=== PATIENT | male | born 1985 | race Caucasian/White ===

== ENCOUNTER 2017-10-23 09:36 | Inpatient (IN) | payer BC, OTHER ==
[~2017-10-23] VITALS: Ht 172.7 cm; Wt 65.8 kg
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
[2017-10-23] MEDS ORDERED: THIAMINE HCL 200 MG/2 ML VIAL IM ONE (15:45)
[2017-10-23] MEDS ORDERED: DICYCLOMINE HCL 20 MG TABLET PO PRN (15:45)
[2017-10-23] MEDS ORDERED: DIAZEPAM 5 MG TABLET PO PRN (15:45)
[2017-10-23] MEDS ORDERED: DIAZEPAM 10 MG TABLET PO PRN ×2 (15:45)
[2017-10-23] MEDS ORDERED: ONDANSETRON 4 MG/2 ML VIAL IM PRN (15:45)
[2017-10-23] MEDS ORDERED: IBUPROFEN 600 MG TABLET PO PRN (15:45)
[2017-10-23] MEDS ORDERED: MAGNESIUM HYDROXIDE 30 ML LIQUID UDC PO PRN (15:45)
[2017-10-23] MEDS ORDERED: ACETAMINOPHEN 325 MG TABLET PO PRN (15:45)
[2017-10-23] MEDS ORDERED: MAG HYDROX/AL HYDROX/SIMETH 30 ML LIQUID UDC PO PRN (15:45)
[2017-10-23] MEDS ORDERED: KETOROLAC TROMETHAMINE 30 MG INJ IM PRN (15:45)
[2017-10-23] MEDS ORDERED: ONDANSETRON ODT 4 MG TAB.RAPDIS SL PRN (15:45)
[2017-10-23] MEDS ORDERED: LOPERAMIDE HCL 2 MG CAPSULE PO PRN ×2 (15:45)
[2017-10-23] MEDS ORDERED: MIRALAX 17 GM POWD.PACK PO PRN (15:45)
[2017-10-23] MEDS ORDERED: CLONIDINE HCL 0.1 MG TABLET PO PRN (15:45)
[2017-10-23] MEDS ORDERED: LORAZEPAM 2 MG/1 ML VIAL IM PRN (15:45)
[2017-10-23 16:21] LABS: BASOPHILS % (AUTO) 0.5 % (0.0-2.0); EOSINOPHILS # (AUTO) 0.2 K/uL (0.0-0.7); EOSINOPHILS % (AUTO) 2.5 % (0.0-7.0); HEMATOCRIT 46.7 % (36.7-47.1); HEMOGLOBIN 15.8 g/dL (12.5-16.3); MEAN CORPUSCULAR HEMOGLOBIN 31.1 uug (23.8-33.4); MEAN CORPUSCULAR HGB CONC 34 g/dL (32.5-36.3); MEAN CORPUSCULAR VOLUME 91.8 fL (73.0-96.2); MONOCYTES # (AUTO) 0.8 K/uL (2.0-10.0); MONOCYTES % (AUTO) 8.9 % (0.0-11.0); NEUTROPHILS # (AUTO) 4.5 K/uL (1.8-8.9); NEUTROPHILS % (AUTO) 53.1 % (38.5-71.5); PLATELET COUNT (AUTO) 281 K/uL (152-348); RED BLOOD CELL COUNT(AUTO) 5.09 MIL/uL (4.06-5.63); WHITE BLOOD COUNT (AUTO) 8.5 K/uL (3.6-10.2)
[2017-10-23 16:24] LABS: ETHANOL < 3 MG/DL (0-0)
[2017-10-23 16:25] LABS: *AMPHETAMINE, URINE NEGATIVE (NEGATIVE); *BARBITURATE, URINE NEGATIVE (NEGATIVE); *CANNABINOID, URINE NEGATIVE (NEGATIVE); *COCCAINE, URINE NEGATIVE (NEGATIVE); *OPIATE, URINE NEGATIVE (NEGATIVE); *PHENCYCLIDINE SCREEN,URINE NEGATIVE (NEGATIVE)
[2017-10-23] MEDS: DIAZEPAM 10 MG TABLET PO SCH ×2 (16:29→20:46)
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
[2017-10-23 16:41] LABS: ALANINE AMINOTRANSFERASE 12 U/L (16-63); ALKALINE PHOSPHATASE 101 U/L (50-136); ASPARTATE AMINOTRANSFERASE 7 U/L (15-37); BILIRUBIN,TOTAL 0.2 mg/dL (0.2-1.0); CARBON DIOXIDE 28 mmol/L (21-32); CHLORIDE 109 mmol/L (98-107); CREATININE 0.9 mg/dL (0.6-1.3); GLUCOSE 136 mg/dL (74-106); POTASSIUM 4.3 mmol/L (3.5-5.1); TOTAL PROTEIN, SERUM 6.6 g/dL (6.4-8.2); UREA NITROGEN, BLOOD 11 mg/dL (7-18)
[2017-10-23 17:00] VITALS: BP 116/68
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
--- NOTE | 2017-10-23 17:30 | NUR ---
PRN Tylenol reassessment PRN Tylenol effective. Pt reports pain level is reduced to 2/10.
[2017-10-23] MEDS ORDERED: DULO60CA45 PO (18:21)
--- NOTE | 2017-10-23 19:13 | NUR ---
END OF SHIFT Report provided to day shift nurse. Pt is in his room watching TV. He is a 32 yo male admitted to [facility] today for BZD dependence. Last CIWA was 8. He drank 800mL. Fall and seizure precautions in place. Bed is down with call light in reach. Addendum: 10/23/17 at 1914 by AILEEN ZHU RN Correction: Report provided to automobile body repairer nurse.
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
[2017-10-23 20:00] VITALS: BP 117/74
[2017-10-23] MEDS: GABAPENTIN 300 MG CAPSULE PO SCH (20:46)
[2017-10-24] VITALS: BP 119/80
[2017-10-24 04:00] VITALS: BP 115/63
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
[2017-10-24 08:00] VITALS: BP 123/77
[2017-10-24] MEDS ORDERED: TUBERCULIN,PURIF.PROT.DERIV. 5 TU/0.1 ML TEST ID ONE (09:00)
[2017-10-24] MEDS: GABAPENTIN 300 MG CAPSULE PO SCH ×2 (09:37→20:07)
[2017-10-24] MEDS: DIAZEPAM 10 MG TABLET PO SCH ×3 (09:37→20:07)
[2017-10-24] MEDS: MULTIVITAMINS,THERAPEUTIC TABLET PO SCH (09:37)
[2017-10-24] MEDS: THIAMINE HCL 100 MG TABLET PO SCH (09:38)
[2017-10-24] MEDS: FOLIC ACID 1 MG TABLET PO SCH (09:38)
[2017-10-24] MEDS ORDERED: DULOXETINE 60 MG CAPSULE.DR PO SCH (10:45)
[2017-10-24 12:00] VITALS: BP 128/68
[2017-10-24 16:30] VITALS: BP 127/69
--- NOTE | 2017-10-24 16:59 | NUR ---
Therapist prompted client about group times. Client stated he will start attending groups tomorrow as he wants to rest today.
--- NOTE | 2017-10-24 17:12 | NUR ---
One time Zoila Pt reports feeling anxious. He states, "I feel like I'm about to panic". Encouraged relaxation. CIWA score 10. Contacted MD. Orders received for one time Zoila.
[2017-10-24] MEDS ORDERED: DIAZEPAM 10 MG TABLET PO ONE (17:15)
--- NOTE | 2017-10-24 18:10 | NUR ---
One time Valium reassessment One time Valium effective. Pt reports feeling more relaxed. CIWA score 4.
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
[2017-10-24] MEDS ORDERED: DIAZEPAM 10 MG TABLET PO PRN ×2 (19:45)
[2017-10-24] MEDS ORDERED: DIAZEPAM 5 MG TABLET PO PRN (19:45)
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
[2017-10-24 20:00] VITALS: BP 131/82
[2017-10-24] MEDS: BACLOFEN 20 MG TABLET PO PRN (20:07)
--- NOTE | 2017-10-24 20:07 | NUR ---
PRN Baclofen Px complained of body aches of 7/10. Baclofen 20 mg/tab, 1 tab given PO as PRN med. Well continue to monitor.
[2017-10-25] VITALS: BP 112/71
[2017-10-25 04:00] VITALS: BP 110/69
--- NOTE | 2017-10-25 04:00 | NUR ---
CIWA deferred CIWA deferred at 0000 and 0400 due to the px is asleep, to assess if the px is awake per doctor's order. We'll continue to monitor.
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
[2017-10-25 08:00] VITALS: BP 136/72
[2017-10-25] MEDS: FOLIC ACID 1 MG TABLET PO SCH (08:31)
[2017-10-25] MEDS: DULOXETINE 30 MG CAPSULE.DR PO SCH (08:31)
[2017-10-25] MEDS: MULTIVITAMINS,THERAPEUTIC TABLET PO SCH (08:32)
[2017-10-25] MEDS: THIAMINE HCL 100 MG TABLET PO SCH (08:32)
[2017-10-25] MEDS: BACLOFEN 20 MG TABLET PO PRN (08:32)
[2017-10-25] MEDS: GABAPENTIN 300 MG CAPSULE PO SCH (08:32)
--- NOTE | 2017-10-25 08:33 | NUR ---
PRN Baclofen Pt reports generalized body aches 05/21. PRN Baclofen administered.
[2017-10-25] MEDS ORDERED: DIAZEPAM 5 MG TABLET PO SCH (09:00)
--- NOTE | 2017-10-25 09:33 | NUR ---
PRN Baclofen reassessment PRN Baclofen effective. Pt reports body aches are relieved.
[2017-10-25 11:48] LABS: HEPATITIS B SURFACE AG Negative (Negative)
[2017-10-25 12:00] VITALS: BP 133/83
[2017-10-25] MEDS: DIAZEPAM 5 MG TABLET PO SCH ×2 (13:14→16:56)
[2017-10-25 16:00] VITALS: BP 134/76
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
[2017-10-25 20:00] VITALS: BP 125/85
[2017-10-25] MEDS ORDERED: DIAZEPAM 10 MG TABLET PO SCH (21:00)
[2017-10-25] MEDS ORDERED: GABAPENTIN 300 MG CAPSULE PO SCH (21:00)
--- NOTE | 2017-10-25 21:00 | NUR ---
PRN BENADRYL Pt. complains of sleeplessness. PRN BENADRYL given as ordered. Safety measures in place : bed on lowest position with side rails x2 up for safety, call light within reach. Will continue to monitor closely and offer help.
[2017-10-25] MEDS: diphenhydrAMINE 50 MG CAPSULE PO PRN (21:32)
--- NOTE | 2017-10-25 22:00 | NUR ---
RE-ASSESSMENT KARYNA Pt. is sleeping, RR=16 unlabored and even. Safety measures in place : bed on lowest position with side rails x2 up for safety, call light within reach. Will continue to monitor closely and offer help.
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
[2017-10-26 08:00] VITALS: BP 133/89
[2017-10-26] MEDS: DULOXETINE 30 MG CAPSULE.DR PO SCH (08:30)
[2017-10-26] MEDS: DIAZEPAM 5 MG TABLET PO SCH ×3 (08:31→20:35)
[2017-10-26] MEDS: MULTIVITAMINS,THERAPEUTIC TABLET PO SCH (08:31)
[2017-10-26] MEDS: GABAPENTIN 300 MG CAPSULE PO SCH ×3 (08:31→20:35)
[2017-10-26] MEDS: FOLIC ACID 1 MG TABLET PO SCH (08:31)
[2017-10-26] MEDS: BACLOFEN 20 MG TABLET PO PRN ×2 (08:31→17:03)
[2017-10-26] MEDS: THIAMINE HCL 100 MG TABLET PO SCH (08:31)
--- NOTE | 2017-10-26 08:31 | NUR ---
PRN Baclofen 20mg PO administered for severe muscle spasms. Call light within reach.
--- NOTE | 2017-10-26 09:31 | NUR ---
Reassessment PRN Baclofen 20mg PO, client reports relief from muscle spasms. Call light within reach.
--- NOTE | 2017-10-26 10:03 | NUR ---
Zero induration at TB test site on Left forearm.
[2017-10-26 12:00] VITALS: BP 131/88
[2017-10-26 16:55] VITALS: BP 132/92
--- NOTE | 2017-10-26 17:03 | NUR ---
PRN Baclofen 20mg PO administered for severe muscle spasms. Call light within reach.
[2017-10-26] MEDS: CLONIDINE HCL 0.1 MG TABLET PO PRN (18:00)
--- NOTE | 2017-10-26 18:00 | NUR ---
PRN Clonidine 0.1mg PO administered for anxiety, irritability MB increased P 111. Dr. Scott notified of increased Pulse through out the shift, client denies any chest pain, NNO at this time.
--- NOTE | 2017-10-26 18:03 | NUR ---
Reassessment PRN Baclofen 20mg PO, client reports relief from muscle spasms. Call light within reach.
--- NOTE | 2017-10-26 19:00 | NUR ---
END OF SHIFT & Reassessment PRN Clonidine Client is a 32 y/o male, admitted to [facility] for withdrawal from alprazolam. Client is on a modified 5 day Diazepam taper, tolerating well, (day 3). Last CIWA 9 @ 1600. PRN Baclofen 20mg PO x 2 for severe muscle spasms, Clonidine 0.1mg PO for anxiety, irritability, noted effective P 80. Client reports oral thrush, Dr. Scott notified NNO at this time. Adequate PO fluid intake 1591mL, void x 4, stool x 1. Client is compliant with 2/3 of group therapy. He reports a hx of seizures. Client reports NKA, full code, regular diet. Client side rails x 2 up/padded. Seizure precautions. Call light within reach. Endorsed to incoming nurse.
[2017-10-26 20:00] VITALS: BP 118/85
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
[2017-10-26] MEDS: diphenhydrAMINE 50 MG CAPSULE PO PRN (21:58)
--- NOTE | 2017-10-26 21:58 | NUR ---
PRN Administration Pt requested sleep aid. Benadryl 50mg PRN administered. Safety measures in place, will continue to monitor.
--- NOTE | 2017-10-26 22:58 | NUR ---
PRN Reassessment Upon reassessment, pt is sleeping in bed, eyes closed, respirations even/unlabored. Safety measures in place, will continue to monitor.
[2017-10-27] VITALS: BP 109/67
--- NOTE | 2017-10-27 | NUR ---
CIWA deferred d/t pt sleeping, to assess while pt is awake as ordered. BP 109/67, pulse 96, resp 16, SpO2 99% room air, temp 98.[address], will continue to monitor.
--- NOTE | 2017-10-27 04:00 | NUR ---
ELVISWA deferred d/t pt sleeping, to assess while pt is awake as ordered. Pt refused to be woken up for 0[address], will continue to monitor.
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
[2017-10-27 08:00] VITALS: BP 121/74
[2017-10-27] MEDS: GABAPENTIN 300 MG CAPSULE PO SCH ×3 (08:51→20:08)
[2017-10-27] MEDS: THIAMINE HCL 100 MG TABLET PO SCH (08:52)
[2017-10-27] MEDS: DIAZEPAM 5 MG TABLET PO SCH ×2 (08:52→20:08)
[2017-10-27] MEDS: FOLIC ACID 1 MG TABLET PO SCH (08:52)
[2017-10-27] MEDS: DULOXETINE 30 MG CAPSULE.DR PO SCH (08:52)
[2017-10-27] MEDS: MULTIVITAMINS,THERAPEUTIC TABLET PO SCH (08:52)
[2017-10-27 12:00] VITALS: BP 133/84
[2017-10-27 16:00] VITALS: BP 120/72
[2017-10-27] MEDS: CLONIDINE HCL 0.1 MG TABLET PO PRN (17:24)
--- NOTE | 2017-10-27 17:24 | NUR ---
Clonidine 0.1mg PO given: Patient noted with increased anxiety and agitation. BP 120/72, Pulse 99. Non-pharmacological interventions were ineffective. Medicated patient with Clonidine 0.1mg PO as ordered. Will monitor for effectiveness.
--- NOTE | 2017-10-27 18:24 | NUR ---
Re-assessment: Per patient, Clonidine 0.1mg PO was effective in reducing patient's anxiety and agitation.
--- NOTE | 2017-10-27 19:05 | NUR ---
End of Shift Notes: Patient continues to be on a modified 5-day Valium taper as ordered. No adverse reactions noted. Patient is tolerating taper well. VS monitored closely. No significant abnormalities noted. Withdrawal symptoms were closely monitored. Initial CIWA 6, patient presented with anxiety, tremors, sweating and fatigue. Last CIWA 4. Per patient, Valium has been effective in reducing his withdrawal symptoms. PRN Clonidine 0.1mg PO given at 1724 with help after 1 hour. Denies S/I or H/I. No AV hallucinations noted. Compliant with care and treatment. Requires encouragement to attend group and activities. All needs met and attended. Will continue to monitor closely.
[2017-10-27 20:00] VITALS: BP 112/68
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
[2017-10-28] VITALS: BP 110/82
--- NOTE | 2017-10-28 | NUR ---
CIWA deferred d/t pt sleeping, to assess while pt is awake as ordered. BP 110/82, pulse 74, resp 16, SpO2 99% room air, temp 98.[address], will continue to monitor.
[2017-10-28 04:00] VITALS: BP 131/80
[2017-10-28] MEDS: HYDROXYZINE PAMOATE 25 MG CAPSULE PO PRN ×2 (04:16→17:12)
--- NOTE | 2017-10-28 04:16 | NUR ---
PRN Administration Pt reports feeling anxious, requests relief. Vistaril 25mg PRN administered. Safety measures in place, will continue to monitor.
[2017-10-28] MEDS ORDERED: HYDROXYZINE PAMOATE 25 MG CAPSULE ONE (04:31)
--- NOTE | 2017-10-28 05:16 | NUR ---
PRN Reassessment Upon reassessment, pt is in bed, resting with eyes closed, respirations even/unalbored. Safety measures in place, will continue to monitor.
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
--- NOTE | 2017-10-28 07:02 | NUR ---
Start of Shift Endorsement received from nightshift nurse. Pt is a 32 y/o male admitted for Xanax, Meth and alcohol. . PT has been placed on a Modified Valium taper. Pt received PRN Vistaril during nightshift. Pt reports sleeping 9 hours and feels rested at this time. Pt is tolerating the taper AEB CIWA 5 at 0400. PT is alert and oriented x4. Pt is in STABLE condition at this time. Remains compliant with medication and diet regimen. All needs have been met, All safety measures in place per hospital policy. Bed in lowest position, side rails up x2, call-light within reach. Will continue to monitor
[2017-10-28 08:00] VITALS: BP 128/72
[2017-10-28] MEDS: GABAPENTIN 300 MG CAPSULE PO SCH ×3 (08:55→20:17)
[2017-10-28] MEDS: MULTIVITAMINS,THERAPEUTIC TABLET PO SCH (08:55)
[2017-10-28] MEDS: FOLIC ACID 1 MG TABLET PO SCH (08:55)
[2017-10-28] MEDS: THIAMINE HCL 100 MG TABLET PO SCH (08:55)
[2017-10-28] MEDS: DULOXETINE 30 MG CAPSULE.DR PO SCH (08:55)
[2017-10-28] MEDS ORDERED: DIAZEPAM 5 MG TABLET PO SCH (09:00)
[2017-10-28 12:00] VITALS: BP 125/70
[2017-10-28] MEDS: CLONIDINE HCL 0.1 MG TABLET PO PRN (13:49)
[2017-10-28 16:00] VITALS: BP 117/76
[2017-10-28] MEDS ORDERED: HYDR-3895 PO (18:02)
[2017-10-28] MEDS ORDERED: BACL20TA PO (18:02)
[2017-10-28] MEDS ORDERED: CLON0.1T14 PO (18:02)
[2017-10-28] MEDS ORDERED: GABA-534 PO (18:02)
[2017-10-28] MEDS ORDERED: DULO30CA2 PO (18:02)
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
[2017-10-28 20:00] VITALS: BP 113/69
[2017-10-28] MEDS: BACLOFEN 20 MG TABLET PO PRN (20:17)
--- NOTE | 2017-10-28 20:17 | NUR ---
PRN Baclofen Px complained of body aches of 7/10. Baclofen 20 mg/tab, 1 tab given PO as PRN med. We'll continue to monitor.
[2017-10-29] VITALS: BP 110/66
--- NOTE | 2017-10-29 | NUR ---
CIWA deferred CIWA deferred due to the px is asleep, to assess if the px is awake per doctor's order. We'll continue to monitor.
[2017-10-29 04:00] VITALS: BP 115/69
--- NOTE | 2017-10-29 04:00 | NUR ---
CIWA deferred CIWA deferred due to the px is asleep, to assess if the px is awake per doctor's order. We'll continue to monitor.
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
[2017-10-29 08:00] VITALS: BP 115/69
[2017-10-29] MEDS: DULOXETINE 30 MG CAPSULE.DR PO SCH (08:49)
[2017-10-29] MEDS: MULTIVITAMINS,THERAPEUTIC TABLET PO SCH (08:49)
[2017-10-29] MEDS: GABAPENTIN 300 MG CAPSULE PO SCH (08:49)
[2017-10-29] MEDS: FOLIC ACID 1 MG TABLET PO SCH (08:50)
[2017-10-29] MEDS: THIAMINE HCL 100 MG TABLET PO SCH (08:50)
--- NOTE | 2017-10-29 09:25 | NUR ---
Discharge note PT has been discharged from [facility] PT is in Stable condition, VS WNL. Denies suicidal and homicidal ideations at this time. . All documentation has been completed, paperwork signed and dated. Pt left with all of his belongings, medications and prescriptions. Pt has been discharged from [facility] on 10/29/17 at 0925. has been Notified.
== END 2017-10-29 09:25 | disposition home or self-care (01) | DRG 895 ==
LOC: SRC 14:48
PROVIDERS: ADMIT Internal Medicine; ATTEND Internal Medicine
PROC: HZ2ZZZZ Detoxification Services for Substance Abuse Treatment (ICD-10-PCS; principal; 2017-10-23)
PROC: HZ31ZZZ Individual Counseling for Substance Abuse Treatment, Behavioral (ICD-10-PCS; 2017-10-25)
PROC: HZ41ZZZ Group Counseling for Substance Abuse Treatment, Behavioral (ICD-10-PCS; 2017-10-26)
DX: F13.230 Sedative, hypnotic or anxiolytic dependence with withdrawal, uncomplicated (principal); F33.2 Major depressive disorder, recurrent severe without psychotic features; F11.10 Opioid abuse, uncomplicated; F17.210 Nicotine dependence, cigarettes, uncomplicated; Z98.84 Bariatric surgery status; Z90.49 Acquired absence of other specified parts of digestive tract; G43.909 Migraine, unspecified, not intractable, without status migrainosus; F90.9 Attention-deficit hyperactivity disorder, unspecified type; Z79.899 Other long term (current) drug therapy; F41.9 Anxiety disorder, unspecified; F14.10 Cocaine abuse, uncomplicated; F15.10 Other stimulant abuse, uncomplicated; F10.10 Alcohol abuse, uncomplicated; Y90.0 Blood alcohol level of less than 20 mg/100 ml; R73.9 Hyperglycemia, unspecified; R07.81 Pleurodynia; V89.2XXA Person injured in unspecified motor-vehicle accident, traffic, initial encounter; Y92.410 Unspecified street and highway as the place of occurrence of the external cause; Z83.3 Family history of diabetes mellitus; Z81.3 Family history of other psychoactive substance abuse and dependence; Z82.49 Family history of ischemic heart disease and other diseases of the circulatory system
CPT/HCPCS: 36415; 70030-TC; 71010; 80307; 80346; 83735; 85025; 86580; 86592; 86705; 86803; 87340; 87806; A4663; G0480; J3411; Q0163

== ENCOUNTER 2018-06-04 08:34 | Inpatient (IN) | payer BC, OTHER ==
--- NOTE | 2018-06-02 22:00 | NUR ---
Phenobarbital Administration CIWA 13: Anxious, irritable, worried, poor eye contact, burning sensation, light sensitivity, flushed, restless, chills with fine tremors noted. Phenobarbital 60mg x1 administered. K 3.0 Supplemented with kdur 40 MEQ PO Safety measures in place, will continue to monitor. Addendum: 06/06/18 at 0148 by JAYY MARTINEZ RN WRONG TIME AND DATE
[~2018-06-04] VITALS: Ht 172.7 cm; Wt 61.2 kg
[~2018-06-04 08:34] MED LIST: BACL20TA PO; CLON0.1T14 PO; DULO30CA2 PO; GABA-534 PO; HYDR-3895 PO
--- NOTE | 2018-06-05 19:50 | NUR ---
Pre-Admission Pt is a 32 year old male who presents to [facility] intake for Benzodiazepine withdrawal. Pt has avoidant eye contact, however responds to questions asked. Pt reports he has arrived to [facility] due to using Xanax 2mg 6mg/daily and meth 1g/daily. Pt reported he drank alcohol on 05/23/2018. Educated pt regarding policies: controlled substances will be wasted and not returned at discharge, vital signs will be taken every 4 hours and as needed, kitchen access if via staff and permission to smoke is via nurse only. Pt verbalizes understanding, will continue with admission process upon arrival to the unit.
[2018-06-05 20:00] VITALS: BP 117/69
--- NOTE | 2018-06-05 20:00 | NUR ---
Admission Pt is a 32 year old male, arrived to [facility] at 1956 and is admitted for medically supervised withdrawal from Benzodiazepine. Pt has NKA, denies history of seizures but reports history of withdrawal induced delirium in January 2018. Pt was able to provide a urine drug screen. Pt reports he does not have a primary care provider, denies being hospitalized within the past 30, smokes 1 pack of cigarettes daily. Upon time of assessment, Pt appears worried, anxious, depressed, appears undernourished, slumped posture and appears preoccupied and deep in thought. Pt presents with a CIWA 13: Pt is restless, flushed, anxious, poor eye contact, depressed, reports body aches, fine tremors visible, reports feeling burning sensation in arms, worried and is guarded. VS BP 117/69, pulse 109, resp 17, Spo2 97% room air and temp 98.2, weight 135 lb and height 58. Substance abuse history is as follow: 1. Xanax 2-6mg/daily, last intake of 2mg on 06/05/2018, at this rate for the past 1 week 2. ETOH pt reports he drank Wine 2 bottles and 0.5 pints of Vodka on 05/23/2018 after he quit his job. Pt reports, I just didnt know what else to do. Pt reports he did not drink anymore, other than on 05/23/2018. 3. Methamphetamine 1g/daily, last intake of 0.4g on 06/05/2018, at this rate for the past 1 week. As admission assessment continues, pt remains in bed, with a worried and anxious demeanor, slumped posture with eyes closed as he responds to assessment questions. Pt states that withdrawal symptoms include Pain, joints, hot/cold, burning sensations, chills, tremors, fatigue, emotional instability, sensitivity to light with teary eyes". Pt reports, I have tried being sober numerous times, but 7 months was the longest, in November 2016 to May 2017. Treatment History is as follows: [facility] for 5 months, [facility] [id number] for 7 days, [facility] July 2017 - 2017, [facility] for 7 days in 2018 and [facility], January 2018 for 60 days. Pt reports he has remained sober in between treatment facilities for maybe about 2 months here and there. I havent stayed sober all too long in between. Pt reports he relapsed one week ago, because he lost his job that he got at [employer]. Pt states, I became depressed because I realized I couldnt hold down a job, so I told them I am not qualified When asked about the trigger behind why he began using, Pt states, I needed to fit. All of my so called friends were using, so I had to use too. Pt continues to respond to questions, however presents with difficulty concentrating. Pt states, I used now because I cant make any sense now when I talk. Its like my response is a delayed reaction. Pt continues to report he cant keep a job for a long time, which causes him to become depressed. I have no motivation, so I lay in bed. But thats when I get panic attacks and muscle cramps, so I started using Xanax and meth. Pt states that his barrier to remain sober is because of my depression, I get frustrated. However, pt is motivated to stay sober and states, I want to be happy and have a job. Pt continues to state, I lost everything because of all this, I even went bankrupt because of it. Pt reports his family does support him, its hard, because my mom and dad both use meth, but I do have them as half-way. PMH: Anxiety, major depression, bipolar disorder, left foot fracture, appendectomy, cholecystectomy, history of gonorrhea and Chlamydia. Respirations even/unlabored, denies SOB/chest pain, PERRLA. Skin is noted to be clammy, bowel sounds hyperactive x4, skin intact, pt follows regular diet. Pt denies SI/HI. Educated pt about plan of care including detox, group therapy, individual therapy and discharge planning. Educational packets provided and left at bed side, pt oriented to room and encouraged to notify staff with any concerns. Safety measures in place, call light within reach, ride rails up x2, bed locked and in low position. Will continue to monitor. Addendum: 06/06/18 at 0638 by JAYY MARTINEZ RN Substance abuse history is as follow: 1. Xanax 2-6mg/daily, last intake of 2mg on 06/05/2018 "around 8 in the morning", at this rate for the past 1 week 2. ETOH pt reports he drank Wine 2 bottles and 0.5 pints of Vodka on 05/23/2018 after he quit his job. Pt reports, I just didnt know what else to do. Pt reports he did not drink anymore, other than on 05/23/2018. 3. Methamphetamine 1g/daily, last intake of 0.4g on 06/05/2018 "around 8 in the morning", at this rate for the past 1 week.
[2018-06-05 20:07] LABS: *AMPHETAMINE, URINE POSITIVE (NEGATIVE); *BARBITURATE, URINE NEGATIVE (NEGATIVE); *CANNABINOID, URINE NEGATIVE (NEGATIVE); *COCCAINE, URINE NEGATIVE (NEGATIVE); *OPIATE, URINE NEGATIVE (NEGATIVE); *PHENCYCLIDINE SCREEN,URINE NEGATIVE (NEGATIVE)
[2018-06-05] MEDS ORDERED: DULO30CA2 PO (20:45)
[2018-06-05] MEDS ORDERED: DULO60CA45 PO (20:45)
[2018-06-05] MEDS ORDERED: EMTR1TAB6 PO (20:45)
[2018-06-05] MEDS ORDERED: PHENOBARBITAL 60 MG TABLET PO ONE (21:30)
[2018-06-05] MEDS ORDERED: LOPERAMIDE HCL 2 MG CAPSULE PO PRN ×2 (21:30)
[2018-06-05] MEDS ORDERED: MIRALAX 17 GM POWD.PACK PO PRN (21:30)
[2018-06-05] MEDS ORDERED: ONDANSETRON 4 MG/2 ML VIAL IM PRN (21:30)
[2018-06-05] MEDS ORDERED: ONDANSETRON ODT 4 MG TAB.RAPDIS SL PRN (21:30)
[2018-06-05] MEDS ORDERED: MAG HYDROX/AL HYDROX/SIMETH 30 ML LIQUID UDC PO PRN (21:30)
[2018-06-05] MEDS ORDERED: MAGNESIUM HYDROXIDE 30 ML LIQUID UDC PO PRN (21:30)
[2018-06-05] MEDS ORDERED: diphenhydrAMINE 50 MG CAPSULE PO PRN (21:30)
[2018-06-05] MEDS ORDERED: DICYCLOMINE HCL 20 MG TABLET PO PRN (21:30)
[2018-06-05 21:40] LABS: BASOPHILS % (AUTO) 0.4 % (0.0-2.0); EOSINOPHILS # (AUTO) 0.2 K/uL (0.0-0.7); EOSINOPHILS % (AUTO) 3.3 % (0.0-7.0); HEMOGLOBIN 14.8 g/dL (12.5-16.3); LYMPHOCYTES # (AUTO) 2.2 K/uL (20.0-40.0); LYMPHOCYTES % (AUTO) 34.2 % (20.5-51.5); MEAN CORPUSCULAR HEMOGLOBIN 31.5 uug (23.8-33.4); MEAN CORPUSCULAR HGB CONC 34 g/dL (32.5-36.3); MEAN CORPUSCULAR VOLUME 93.6 fL (73.0-96.2); MONOCYTES # (AUTO) 0.5 K/uL (2.0-10.0); MONOCYTES % (AUTO) 7.9 % (0.0-11.0); NEUTROPHILS # (AUTO) 3.4 K/uL (1.8-8.9); NEUTROPHILS % (AUTO) 54.2 % (38.5-71.5); PLATELET COUNT (AUTO) 227 K/uL (152-348); WHITE BLOOD COUNT (AUTO) 6.3 K/uL (3.6-10.2)
--- NOTE | 2018-06-05 22:00 | NUR ---
Phenobarbital Administration CIWA 13: Anxious, irritable, worried, poor eye contact, burning sensation, light sensitivity, flushed, restless, chills with fine tremors noted. Phenobarbital 60mg x1 administered. K 3.0 Supplemented with kdur 40 MEQ PO Safety measures in place, will continue to monitor.
[2018-06-05 22:01] LABS: ALANINE AMINOTRANSFERASE 26 U/L (16-63); ALKALINE PHOSPHATASE 76 U/L (50-136); AMYLASE 40 U/L (25-115); ASPARTATE AMINOTRANSFERASE 18 U/L (15-37); BILIRUBIN,TOTAL 0.6 mg/dL (0.2-1.0); CARBON DIOXIDE 26 mmol/L (21-32); CHLORIDE 100 mmol/L (98-107); GLUCOSE 92 mg/dL (74-106); LIPASE 152 U/L (73-393); MAGNESIUM 1.9 mg/dL (1.8-2.4); TOTAL PROTEIN, SERUM 7.7 g/dL (6.4-8.2); UREA NITROGEN, BLOOD 10 mg/dL (7-18)
[2018-06-05 22:03] LABS: ETHANOL < 3 MG/DL (0-0)
[2018-06-05] MEDS ORDERED: POTASSIUM CHLORIDE 20 MEQ TAB.PRT.SR PO ONE (22:30)
[2018-06-06] VITALS: BP 124/87
--- NOTE | 2018-06-06 | NUR ---
CIWA Assessment CIWA is 9 with s/s: sweats, flushed skin, sensitivity to light and irritability. Pt states, Please, just leave me alone, and turn the light off. I just want to sleep. Respiration unlabored, safety measures in place, will continue to monitor.
[2018-06-06 04:00] VITALS: BP 112/78
--- NOTE | 2018-06-06 04:00 | NUR ---
CIWA deferred due to pt sleeping - to assess while pt is awake as ordered. Respirations unlabored. safety measures in pace, will continue to monitor.
--- NOTE | 2018-06-06 07:02 | NUR ---
End of Shift Pt is a 32 year old male admitted for benzodiazepine withdrawal, placed on a 5 day Phenobarbital taper to be started today, 06/06/2018. During shift, pt presented with anxiety and irritability, yet was guarded and remained in room at all times. Pt presented with body aches, skin flushed/clammy, fine tremors visible MD ordered Phenobarbital 60mg x1 order carried out along with Kdur 40 MEQ PO to supplement K 3.0. Pt educated about plan of care, CIWA 13 decreased to CIWA 9. Pt slept for 6 hours, intake of 7 ml and voids x1. Safety measures in place, endorsed to day shift nurse.
--- NOTE | 2018-06-06 07:35 | NUR ---
START OF SHIFT Pt is a 32 yr old male, admitted on 06/05/18 for benzo withdrawal and is to start of 5 day Phenobarbital taper. received report from power and recovery shift engineer nurse. No PRN's were given during the night. Pt slept for 7 hrs. Last CIWA score was 9. Pt is currently in bed sleeping with respirations even and unlabored. Skin is intact, warm and moist to touch. Pt is on fall and seizure precautions. Call light is within reach. Will continue to monitor.
[2018-06-06 08:00] VITALS: BP 94/70
--- NOTE | 2018-06-06 08:45 | NUR ---
CIWA 15 Pt is c/o anxiety, agitation, headache 4/10, sweats and pins and needle sensation on BUE/BLE. Pt is noted with fine tremors on BUE. Pt is noted with flat affect. Pt is also c/o lack of appetite.
[2018-06-06] MEDS ORDERED: EMTRICITABINE/TENOFOVIR TABLET PO SCH ×2 (09:00)
[2018-06-06] MEDS ORDERED: TUBERCULIN,PURIF.PROT.DERIV. 5 TU/0.1 ML TEST ID ONE (09:00)
[2018-06-06] MEDS: PHENOBARBITAL 60 MG TABLET PO SCH ×3 (09:07→22:25)
[2018-06-06] MEDS: DULOXETINE 30 MG CAPSULE.DR PO SCH (09:07)
[2018-06-06] MEDS: MULTIVITAMINS,THERAPEUTIC TABLET PO SCH (09:07)
--- NOTE | 2018-06-06 09:26 | NUR ---
MEDICATION REFUSED pt refused to have TB skin test. Pt states of having one done for work 2 weeks ago and states he had a negative results. was made aware.
[2018-06-06] MEDS: TRUVADA PO SCH (09:28)
[2018-06-06 11:53] LABS: CREATININE 1.1 mg/dL (0.6-1.3); POTASSIUM 3.8 mmol/L (3.5-5.1)
[2018-06-06 12:16] VITALS: BP 111/70
--- NOTE | 2018-06-06 12:33 | NUR ---
CIWA 18 Pt is observed with flat affect. Pt is c/o anxiety, agitation, headache, and is c/o pain on left arm. Pt was offered Motrin 600mg PO PRN but pt refused. Pt states, "It feels like nerved pain". Fine tremors are seen on BUE. Skin is clammy to touch. CIWA score is 18. Dr. Arana is made aware of increase CIWA score and c/o left arm pain. Per MD will examine pt. Will continue to f/u.
[2018-06-06] MEDS: VALACYCLOVIR HCL 500 MG TABLET PO SCH ×2 (14:24→22:25)
[2018-06-06] MEDS: GABAPENTIN 100 MG CAPSULE PO PRN (14:24)
--- NOTE | 2018-06-06 14:24 | NUR ---
PRN GIVEN Pt c/o left arm "nerve pain" and states he feels numb on the left arm. Neurontin 100mg PO PRN was given as ordered. Will continue to monitor.
--- NOTE | 2018-06-06 15:12 | NUR ---
Therapist prompted client to attend group therapy sessions and client stated he was not feeling well enough to attend.
--- NOTE | 2018-06-06 15:24 | NUR ---
PRN RE-ASSESSMENT Gabapentin PRN was effective. pt states "my arm feels better". Will continue to monitor.
[2018-06-06 16:00] VITALS: BP 133/92
--- NOTE | 2018-06-06 17:00 | NUR ---
CIWA 14 Pt is observed with flat affect. Pt is c/o anxiety, agitation, sweats, and numbness on BUE. Fine tremors are seen on BUE. skin is moist to touch. Pt is c/o increase fatigue and remained in his room throughout the day. Encouraged increase fluid intake. Will continue to monitor.
[2018-06-06] MEDS: HYDROXYZINE PAMOATE 25 MG CAPSULE PO PRN (18:19)
[2018-06-06] MEDS: CLONIDINE HCL 0.1 MG TABLET PO PRN (18:19)
--- NOTE | 2018-06-06 18:20 | NUR ---
PRN GIVEN/MD COMMUNICATION Pt is c/o increase anxiety, Clonidine 0.1mg PO PRN and Vistaril 25mg PO PRN was administered as ordered. Pt then started to c/o double vision and c/o sensitivity to light. Pt is noted with flat affect and is avoiding eye contact. Pt is observed soft spoken and guarded. CIWA score was 19 at this time. Report to Dr. Arana in regards to chief complaint and received a telephone order for Ativan 2mg PO x1. New order was noted and carried out. Will continue to monitor
[2018-06-06] MEDS ORDERED: LORAZEPAM 1 MG TABLET PO ONE (18:30)
--- NOTE | 2018-06-06 19:06 | NUR ---
END OF SHIFT Pt is a 32 yr old male, AA&Ox4. Pt was started on a 5 phenobarbital taper for benzo w/d, medication was mckayla well. Pt has been noted with increase fatigue and refused to attend group therapy. Pt noted to be secluded and remained in his room throughout the day. Pt is noted with flat affect, avoids eye contact, and is guarded. Pt was c/o anxiety, agitation, headache, double vision, sensitivity to light, visual hallucinations, and pins and needles and numbing sensation on BUE. Skin is moist to touch. Pt was giving Neurontin 100mg PO PRN at 1425, medication was effective. Pt was then given Clonidine 0.1mg PO PRN and Vistaril 25mg PO PRN at 1819 for anxiety. Medication was mildly effective. Pt received Ativan 2mg PO x1 at 1838. Last CIWA score was 19 at 1820. Endorsed to maintenance supervisor 2nd shift nurse to f/u with care.
--- NOTE | 2018-06-06 19:30 | NUR ---
Start of Shift Patient Received. Per endorsement, patient continues on a modified Phenobarbital taper. He is reported to be isolative, flat, guarded, emotional, with racing thoughts. He was also noted to be verbalize feelings of hopelessness. He denies suicidal ideations. Patient was also noted with one episode of visual hallucinations. Patient received one time dose of Ativan 2mg x1 for increased racing thoughts and CIWA of 19. He also received PRN Clonidine and Vistaril with medications noted to be effective. All needs attended to promptly. Will continue plan of care as ordered.
[2018-06-06 20:30] VITALS: BP 120/72
--- NOTE | 2018-06-06 22:00 | NUR ---
Room Change Patient is noted to be very flat, depressed, noted to verbalize racing thoughts, increased anxiety, and states "I feel like I just cant get my words out because no one understands." he is noted to be tense, avoiding eye contact, emotionally labile, and restless. Patient denies suicidal ideations. Relayed to CN. For safety reasons patient was moved closer to nurses station for closer supervision and frequent room checks. Patient verbalized understanding.
[2018-06-07 00:10] VITALS: BP 104/62
[2018-06-07 04:30] VITALS: BP 107/58
[2018-06-07] MEDS: VALACYCLOVIR HCL 500 MG TABLET PO SCH ×3 (06:23→21:28)
--- NOTE | 2018-06-07 07:10 | NUR ---
End of Shift Patient is noted in bed sleeping. Breathing even and non labored. Patient continues on a modified Phenobarbital taper. No PRN medications administered. patients room was changed closer to nurses station for safety and closer monitoring due to patient noted with flat, guarded, emotional, racing thoughts, isolative. He is noted with tense depressed affect. He denies suicidal ideations. No episodes of hallucinations noted. Last noted CIWA 17. Patient noted to sleep a total of 10 hours. All needs attended to promptly. Will endorse to continue to monitor.
--- NOTE | 2018-06-07 07:26 | NUR ---
Start Of Shift Patient is a 32 yr old male who was admitted to [facility] on 06/05/18 for a medically supervised withdrawal from Alcohol ( Whiskey)Benzodiazepines ( Xanax) and methamphetamines. He has been placed on a 5 day Phenobarbital taper and this is day 2. No PRN medications were required or requested on PM shift, he has slept for 10+ hours and his last CIWA was 17. Currently he is asleep in bed, breathing even and unlabored, side rails up x 2 and call light within reach. Continue to follow MD plan of care and offer support as needed.
[2018-06-07 08:00] VITALS: BP 101/74
--- NOTE | 2018-06-07 08:00 | NUR ---
ELVISWA 18 Patients withdrawal symptoms include sensitivity to light, lethargy, difficulty thinking clearly, depression, increased anxiety/agitation, withdrawn affect and headache/sinus pressure. Vistaril 25 MG PO given to ease anxiety along with scheduled 30 MG Phenobarbital
[2018-06-07] MEDS: PHENOBARBITAL 60 MG TABLET PO SCH ×4 (08:04→21:28)
[2018-06-07] MEDS: MULTIVITAMINS,THERAPEUTIC TABLET PO SCH (08:04)
[2018-06-07] MEDS: HYDROXYZINE PAMOATE 25 MG CAPSULE PO PRN ×2 (08:04→15:50)
[2018-06-07] MEDS: DULOXETINE 30 MG CAPSULE.DR PO SCH (08:04)
[2018-06-07] MEDS: TRUVADA PO SCH (08:04)
--- NOTE | 2018-06-07 08:05 | NUR ---
PRN Vistaril Vistaril 25 MG Po given for increased anxiety/agitation. will reassess
--- NOTE | 2018-06-07 09:05 | NUR ---
PRN Vistaril Reassess Patient is asleep in bed at this time, breathing even and unlabored, will continue to monitor
--- NOTE | 2018-06-07 10:30 | NUR ---
PRN Medication Tylenol 650 MG PO, Motrin 600 MG PO and Clonidine 0.1 MG PO given for reports of increased anxiety and sinus pain/pressure and headache 04/21 Will Reassess
[2018-06-07] MEDS: CLONIDINE HCL 0.1 MG TABLET PO PRN (10:31)
[2018-06-07] MEDS: IBUPROFEN 600 MG TABLET PO PRN (10:32)
[2018-06-07] MEDS: ACETAMINOPHEN 325 MG TABLET PO PRN (10:32)
--- NOTE | 2018-06-07 10:45 | NUR ---
Communication with Therapist Asked Therapist to provide some 1:1 counseling with patient as he is extremely depressed and withdrawn.
--- NOTE | 2018-06-07 11:30 | NUR ---
PRN Reassess Patient is asleep in bed at this time, breathing even and unlabored, call light within reach.
[2018-06-07 12:05] VITALS: BP 137/84
[2018-06-07 12:08] LABS: HEPATITIS B SURFACE AG Negative (Negative)
--- NOTE | 2018-06-07 12:08 | NUR ---
WA 17 Patients withdrawal symptoms present as sensitivity to light and sound, emotional volatility, fatigue, headache, nasal congestion/sinus pressure and anhedonia. PRN Vistaril, Motrin, Tylenol and Clonidine have been given this AM with positive results.
--- NOTE | 2018-06-07 13:00 | NUR ---
Talked with client one to one and will document the individual session. He denies SI but has felt depressed at least since he was 19.
[2018-06-07 16:30] VITALS: BP 127/83
[2018-06-07] MEDS ORDERED: LORAZEPAM 1 MG TABLET PO ONE (16:30)
--- NOTE | 2018-06-07 16:30 | NUR ---
MD Communication Dr Ponce Psychiatrist said patient may have Ativan 1MG PO x1 for increased panic state, order entered.
--- NOTE | 2018-06-07 16:44 | NUR ---
CIWA 19 Patient states he is in a near Panic State, obtained order for Ativan 1MG PO x1 Scheduled Phenobarbital 30 MG PO given. Patient displays a very depressed anxious affect and his withdrawal symptoms include anhedonia, increased emotional amplitude, emotional volatility, racing thought and flight of ideas " he states it feels like my head wont stop with all these thoughts and I cant. Relax. HR is 95
--- NOTE | 2018-06-07 17:00 | NUR ---
PRN Ativan Ativan 1MG PO given for increased anxiety and panic feeling, patient displays anhedonia, flat depressed affect and racing thoughts, CIWA 19 Will monitor and reassess
--- NOTE | 2018-06-07 18:00 | NUR ---
PRN Ativan Reassess CIWA now 16 was 19 Patient is resting in bed with eyes closed and states he feels a decreased sense of panic and that after taking the Ativan 1MG PO and Scheduled Phenobarbital he feels less anxious and more calm. Continue to monitor and offer help as needed.
--- NOTE | 2018-06-07 18:56 | NUR ---
End Of Shift : Patient is a 32 yr old male who was admitted to [facility] on 06/05/18 for a medically supervised withdrawal from Alcohol ( Wine/Vodka)Benzodiazepines ( Xanax) and Methamphetamines. he has been placed on a 5 day Phenobarbital taper and this is day 2. During this shift patient has been extremely depressed and isolative to his room, he voices increased flight of ideas and constant chatter in his head, he is emotionally volatile, sensitive to light and sound and states a feeling of panic at times.He denies any SI. Therapist provided 2 sessions 1:1 with him , he refused to join in group therapy or interact with his peers. Psychiatrist ordered a 1 time dose of Ativan 1MG Po @1630 for CIWA 19 and feeling of panic which was effective. PRN medications given on this shift : Vistaril x2, Motrin, Tylenol, Clonidine and Ativan 1MG. He had a fluid intake of 1700 ML, 3 voids and 1BM. Last CIWA was @ 1800. Continue to follow MD plan of care and offer support as needed. Endorsed to lieutenant shift supervisor.
--- NOTE | 2018-06-07 19:30 | NUR ---
START OF SHIFT Pt is a 32 y/o male admitted on 06/05/18 for benzo and ETOH withdrawal. Pt continues on a 5 day Phenobarbital taper. Upon rounds Pt found in bed watching TV. Pt presents with depressed mood, flat affect, anxiety, agitation, flat affect, isolative, myalgia. Pt denies any SI. Scheduled medications and PRN Vistrail, Motrin, Tylenol, Clonidine, Vistaril, and Ativan was given during the day. Last CIWA 16. Scheduled medication due. Safety measures in place. Call light within reach. Will continue to monitor.
[2018-06-07 20:36] VITALS: BP 92/61
[2018-06-07] MEDS: TRAZODONE 100 MG TABLET PO PRN (21:30)
--- NOTE | 2018-06-07 21:30 | NUR ---
PRN TRAZODONE ADMINISTRATION Pt is having difficulty sleeping and requested a sleeping aid. Safety measures in place. Call light within reach. Will continue to monitor.
--- NOTE | 2018-06-07 22:30 | NUR ---
PRN TRAZODONE REASSESSMENT Medication effective ARDEN Pt found resting in bed with eyes closed. Respiration even and unlabored. Safety measures in place. Call light within reach. Will continue to monitor.
[2018-06-08 00:33] VITALS: BP 100/59
--- NOTE | 2018-06-08 00:34 | NUR ---
CIWA and COWS Patient is noted in bed with eyes closed. Breathing even and non labored. COWS and CIWA not able to be completed as per order. Will continue to monitor.
[2018-06-08 04:30] VITALS: BP 97/55
[2018-06-08] MEDS: VALACYCLOVIR HCL 500 MG TABLET PO SCH ×3 (06:25→21:06)
--- NOTE | 2018-06-08 06:57 | NUR ---
END OF SHIFT Pt is a 32 y/o male admitted on 06/05/18 for benzo and ETOH withdrawal. Pt will continue a 5 day Phenobarbital taper. Pt presented with depressed mood, flat affect, anxiety, agitation, flat affect, isolative, myalgia. Pt denies any SI. Scheduled medications and PRN Trazodone were administered, effective in S/S of withdrawal AEB Pt sleeping for 11 hours. Intake 500 ml, void 0, stool 0. Safety measures in place. Call light within reach. Pt's needs have been met. Endorsed to day shift nurse.
--- NOTE | 2018-06-08 07:36 | NUR ---
Start of shift note; Received report from night nurse. Patient is a 32 year old male admitted on 06/05/18 for Benzodiazepine and ETOH withdrawal. Patient presented with flat affect, anhedonia, anxiety, depression, difficulty concentrating, fatigue, intermittent perspiration, muscle aches, restless legs, tremors. Patient appears depressed, denies S/I or H/I. Patient was evaluated by psychiatrist and counseled by therapist per endorsement. Patient is currently on anti-depressant Cymbalta 90mg PO QAM per MD order. Patient received PRN Trazodone for insomnia noted to be effective. Patient's CIWA was 12 and was placed on 5 day Phenobarbital taper to help reduce withdrawal symptoms. All safety measures secured. Will continue to monitor patient.
[2018-06-08 08:00] VITALS: BP 116/68
--- NOTE | 2018-06-08 08:00 | NUR ---
CIWA assessment; Patient's current CIWA score is 14 manifested by anhedonia, anxiety, decreased appetite, depression, difficulty concentrating, fatigue, intermittent perspiration, muscle aches, tremors, restless legs, sensitivity to light . Patient denies suicidal ideation. Will continue to monitor patient.
[2018-06-08] MEDS: MULTIVITAMINS,THERAPEUTIC TABLET PO SCH (08:41)
[2018-06-08] MEDS: DULOXETINE 30 MG CAPSULE.DR PO SCH (08:41)
[2018-06-08] MEDS: PHENOBARBITAL 60 MG TABLET PO SCH ×3 (08:41→21:06)
[2018-06-08] MEDS: TRUVADA PO SCH (08:42)
[2018-06-08 12:00] VITALS: BP 129/88
--- NOTE | 2018-06-08 12:00 | NUR ---
CIWA assessment; Patient's current CIWA score is 13 manifested by avoidant to eye contact, anhedonia, anxiety, decreased appetite, depression, difficulty concentrating, fatigue, intermittent perspiration, muscle aches, tremors, restless legs, sensitivity to light . Patient denies suicidal ideation. Will continue to monitor patient.
[2018-06-08] MEDS: HYDROXYZINE PAMOATE 25 MG CAPSULE PO PRN ×2 (12:45→19:32)
--- NOTE | 2018-06-08 12:45 | NUR ---
PRN Vistaril; Patient appears very anxious, pacing back and forth in the room. Non-pharmacological relaxation techniques ineffective. PRN Vistaril 25mg PO PRN given to patient. Will continue to monitor patient.
[2018-06-08] MEDS: IBUPROFEN 600 MG TABLET PO PRN (13:34)
[2018-06-08] MEDS: CLONIDINE HCL 0.1 MG TABLET PO PRN (13:35)
--- NOTE | 2018-06-08 13:35 | NUR ---
Re-assessment / PRN medication; Patient still appears anxious and agitated , PRN Vistaril is ineffective. Patient is also complaining of left arm pain rated 6/10 on pain scale. PRN Clonidine 0.1mg given for anxiety, HR of 98 noted and BP of 142/92 and agitation. PRN Motrin 600mg PO given for left arm pain . Will continue to monitor patient for effectiveness of medication.
[2018-06-08] MEDS: GABAPENTIN 100 MG CAPSULE PO PRN ×2 (14:15→19:32)
--- NOTE | 2018-06-08 14:15 | NUR ---
PRN ; Patient is complaining of generalized nerve pain and tingling sensation/Burning sensation. PRN Gabapentin 100mg PO given for nerve pain. Will continue to monitor patient.
--- NOTE | 2018-06-08 14:35 | NUR ---
Re-assessment; Patient denies left arm pain at this time. PRN Motrin noted to be effective. Patient is calm and comfortable at this time. PRN Clonidine is effective.
--- NOTE | 2018-06-08 15:15 | NUR ---
Re-assessment; Patient is calm and comfortable, Patient denies tingling or burning sensation at this time. PRN Gabapentin noted to be effective.
[2018-06-08 16:00] VITALS: BP 120/74
--- NOTE | 2018-06-08 16:00 | NUR ---
CIWA assessment; Patient's current CIWA score is 11 manifested by avoidant to eye contact, anhedonia, anxiety, decreased appetite, depression, difficulty concentrating, fatigue, intermittent perspiration, muscle aches, tremors, restless legs, sensitivity to light . Patient denies suicidal ideation. Patient received scheduled and PRN mediations to help reduce withdrawal symptoms. Will continue to monitor patient.
--- NOTE | 2018-06-08 18:06 | NUR ---
End of shift note; Patient is AOX4, presented with anxiety, avoidant to eye contact, anhedonia, decreased appetite, depression, difficulty concentrating, fatigue, intermittent perspiration, muscle aches, tremors, restless legs, sensitivity to light . Patient is isolative and appears depressed but denies suicidal ideation. Patient's last CIWA score is 11 at 1600. Patient remained compliant with medication regime. Encouraged patient to verbalize feelings. Patient refused to participate in group therapy , patient stated "i feel very tired, but i will try to go to therapy tomorrow". Patient received PRN Vistaril, Clonidine, Neurontin and Motrin all noted to be effective. Patient remains on Phenobarbital taper. Medications were effective in reducing withdrawal symptoms. Patient was seen and evaluated by MD. All safety measures secured. met all needs.
--- NOTE | 2018-06-08 19:30 | NUR ---
START OF SHIFT Pt is a 32 y/o male admitted on 06/05/18 for benzo and ETOH withdrawal. Pt continues on a 5 day Phenobarbital taper, tolerating well. Upon rounds Pt found in bed watching TV. Pt presents with depressed mood, restlessness, flat affect, anxiety, agitation, flat affect, isolative, generalized body aches, flushed face and clammy skin. Pt denies any S/I or H/I. Scheduled medications and PRN Vistaril and Gabapentin was given during the day. Last . Scheduled medication due. Safety measures in place. Call light within reach. Will continue to monitor. Addendum: 06/08/18 at 2135 by INEZ JENNINGS RN PRN Motrin was also given during the day
--- NOTE | 2018-06-08 19:32 | NUR ---
PRN GABAPENTIN AND VISTARIL ADMINISTRATION Pt complains of increased anxiety and left arm numbness and tingling 4/10. Pt denies any chest pain, SOB, or dizziness. Gabapentin and Vistaril were administered. Safety measures in place. Call light within reach. Will continue to monitor.
[2018-06-08 20:00] VITALS: BP 128/85
--- NOTE | 2018-06-08 20:00 | NUR ---
CIWA 13 Pt presents with depressed mood, restlessness, flat affect, increased anxiety, agitation, flat affect, isolative, generalized body aches, flushed face and clammy skin. Scheduled medication due. Safety measures in place. Call light within reach. Will continue to monitor.
--- NOTE | 2018-06-08 20:32 | NUR ---
PRN GABAPENTIN AND VISTARIL REASSESSMENT Pt states medications have lowered his anxiety and the numbness in his left arm has subsided. Medication noted effective. Safety measures in place. Call light within reach. Will continue to monitor.
[2018-06-08] MEDS: TRAZODONE 100 MG TABLET PO PRN (21:06)
--- NOTE | 2018-06-08 21:06 | NUR ---
PRN TRAZODONE ADMINISTRATION Pt stated he has trouble sleep and requested a sleeping aid. Trazodone was administered. Safety measures in place. Call light within reach. Will continue to monitor.
--- NOTE | 2018-06-08 22:06 | NUR ---
PRN TRAZODONE REASSESSMENT Pt found in bed with eyes closed. Pt's respirations are even and unlabored. No signs of distress noted. Medication noted effective. Safety measures in place. Call light within reach. Will continue to monitor.
[2018-06-09] VITALS: BP 90/57
--- NOTE | 2018-06-09 | NUR ---
CIWA DEFERRED Patient is noted in bed with eyes closed. Breathing even and non labored. CIWA not able to be completed as per order. Will continue to monitor.
--- NOTE | 2018-06-09 04:00 | NUR ---
CIWA AND VITAL SIGNS DEFERRED Patient is noted in bed with eyes closed. Breathing even and non labored. CIWA and vital signs not able to be completed per order. Will continue to monitor.
[2018-06-09] MEDS: VALACYCLOVIR HCL 500 MG TABLET PO SCH ×3 (06:36→21:41)
--- NOTE | 2018-06-09 07:13 | NUR ---
END OF SHIFT Pt is a 32 y/o male admitted on 06/05/18 for benzo and ETOH withdrawal. Pt will continue a 5 day Phenobarbital taper. Pt presented with depressed mood, flat affect, anxiety, agitation, flat affect, isolative, myalgia. Pt denies any SI. Scheduled medications and PRN Trazodone, Gabapentin, and Vistaril were administered, effective in S/S of withdrawal AEB Pt sleeping for 8.5 hours. Last CIWA 14. Intake 1,055 ml, void 2, stool 0. Safety measures in place. Call light within reach. Pt's needs have been met. Endorsed to day shift nurse.
--- NOTE | 2018-06-09 07:45 | NUR ---
START OF SHIFT Rcvd endorse from ongoing nurse, client is in room, a/o X 4. he presents with flat affect, anhedonia, anxiety, depression, difficulty concentrating, fatigue, intermittent perspiration, muscle aches, restless legs, tremors. Patient appears depressed, denies S/I or H/I. Last CIWA 14 @ 1999. PRN's medications administered and noted per protocol. Client slept 8 hrs. All safety measures secured. Call light within reach.
[2018-06-09 08:11] VITALS: BP 129/88
[2018-06-09] MEDS: TRUVADA PO SCH (09:51)
[2018-06-09] MEDS: PHENOBARBITAL 60 MG TABLET PO SCH ×2 (09:52→21:41)
[2018-06-09] MEDS: MULTIVITAMINS,THERAPEUTIC TABLET PO SCH (09:52)
[2018-06-09] MEDS: DULOXETINE 30 MG CAPSULE.DR PO SCH (09:52)
--- NOTE | 2018-06-09 09:52 | NUR ---
COWS 15 Client is avoidant to eye contact, anhedonia, anxiety, decreased appetite, depressed and anxious mood, flat affect, difficulty concentrating, fatigue, clammy skin, intermittent perspiration, muscle aches, tremors, and restless legs. Phenobarbital 30mg PO administered. Encourage client to attend group therapy to learn skills to maintain sober. Call light within reach.
[2018-06-09 12:42] VITALS: BP 122/77
[2018-06-09] MEDS: IBUPROFEN 600 MG TABLET PO PRN (13:05)
[2018-06-09] MEDS: GABAPENTIN 100 MG CAPSULE PO PRN ×2 (13:05→21:41)
--- NOTE | 2018-06-09 13:05 | NUR ---
CIWA 14 Client presents with anxious mood, agitation, flat affect, avoidant gaze, tremors, clammy skin, headache, decreased appetite, restless legs. He stated, "I'm feeling very anxious, I have this feeling of apprehension, can't stop moving my legs, and I have the worst headache 05/21." PRN Clonidine 0.1mg PO, Gabapentin 100mg PO, Tylenol 650mg and Motrin 600mg PO administered for anxiety, agitation, restless legs syndrome, and headache respectively. Call light within reach.
[2018-06-09] MEDS: CLONIDINE HCL 0.1 MG TABLET PO PRN ×2 (13:06→18:36)
[2018-06-09] MEDS: ACETAMINOPHEN 325 MG TABLET PO PRN (13:06)
--- NOTE | 2018-06-09 13:21 | NUR ---
Therapist prompted client to attend group therapy sessions.
--- NOTE | 2018-06-09 14:05 | NUR ---
Reassess PRN Clonidine 0.1mg, Gabapentin 100mg, Tylenol 650mg and Motrin 600mg, client reports slight relief from anxiety, agitation, restless legs syndrome, and headache 3/10, but tolerable. Call light within reach.
[2018-06-09] MEDS: HYDROXYZINE PAMOATE 25 MG CAPSULE PO PRN (15:00)
--- NOTE | 2018-06-09 15:00 | NUR ---
PRN Visatril 25mg PO admiistered for anxiety. Call light within reach.
--- NOTE | 2018-06-09 16:00 | NUR ---
Reassess PRN Visatril 25mg, client reports feeling less anxious. Call light within reach.
[2018-06-09 16:55] VITALS: BP 122/78
--- NOTE | 2018-06-09 16:55 | NUR ---
CIWA 13 Client continues to present with anxious mood, agitation, flat affect, tremors, clammy skin, nausea, decreased appetite, restless legs, avoids eye contact, tends to isolate himself in room, startles easily, and fatigue. Encourage client to verbalize feelings of despair, he stated, "Why can't I just get more gabapentin? That's all I want." Educated client that gabapentin is Q6h PRN and the medication was administered to him at 1305. Call light within reach.
--- NOTE | 2018-06-09 18:36 | NUR ---
PRN Clonidine 01.mg PO administered for anxiety, client is in bed, crying, he stated, "I feel like I'm out of my mind, I am having a panic attack, my thoughts are very scattered. I would like to get Gabapentin 600 or 800mg for my anxiety or Ativan." Educated client on Gabapentin uses to prevent and control seizures, to relieve nerve pain, restless leg syndrome, not for panic attack. Client vitals T 98.2, RR 18, P, 73, BP 128/85, paid 010, spO2 @ 98% on RA. Call light within reach. Deep breathing techniques demonstrated, client needs reinforcement.
--- NOTE | 2018-06-09 19:21 | NUR ---
END OF SHIFT Endorse client to incoming nurse, client is in room, a/o X 4. he continues to present with flat affect, anhedonia, anxiety, depression, difficulty concentrating, fatigue, intermittent perspiration, muscle aches, restless legs, tremors. Incoming nurse to reassess PRN Clonidine 0.1mg for anxiety. Client denies S/I or H/I. Last CIWA 13 @ 1600. PRN's medications administered and noted per protocol. Client is not compliant with group therapy, encouragement needed. All safety measures secured. Call light within reach
--- NOTE | 2018-06-09 19:36 | NUR ---
Reassessment of anxiety Reassessment of anxiety after an hour of administration of Clonidine is deferred due to the px is asleep. We'll continue to monitor.
[2018-06-09 20:00] VITALS: BP 120/52
--- NOTE | 2018-06-09 20:00 | NUR ---
Start of Shift Note Received 32 y/o male px, admitted for medically supervised withdrawal from Benzos and ETOH. Px was placed on 5 day Phenobarbital taper. Px is tolerating it. Last reported CIWA 13 at 1655 by AM shift nurse. During the rounds at 1999, px is asleep on bed in right side lying position. Bed on lowest position, side rails up 2x and call light within reach. We'll continue to monitor.
--- NOTE | 2018-06-09 20:00 | NUR ---
CIWA deferred CIWA deferred due to the px is asleep. To assess if the px is awake per doctor's order. We'll continue to monitor.
--- NOTE | 2018-06-09 21:30 | NUR ---
Px woke up Px woke up. He appears drowsy and depressed. He has poor eye contact. Px complained of his anxiety which is 8/10 and restless legs. Px stated "Can I have Gabapentin and my sleep pill?" We'll continue to monitor.
--- NOTE | 2018-06-09 21:30 | NUR ---
CIWA 12 Px appears drowsy and depressed. Px stated that his anxiety is 8/10. Bilateral hand tremors noted. Px complained of restless legs. No pain at the moment. We'll continue to monitor.
[2018-06-09] MEDS: TRAZODONE 100 MG TABLET PO PRN (21:41)
--- NOTE | 2018-06-09 21:41 | NUR ---
PRN medication Px received Desyrel 100 mg PO for insomnia and Gabapentin 100 mg PO for restless legs. We'll continue to monitor.
--- NOTE | 2018-06-09 22:41 | NUR ---
Reassessment CIWA 12 Px is awake but trying to sleep again. No changes. Px stated that his anxiety is still 8/10. Bilateral hand tremors noted. Px still has restless legs. No pain at the moment. We'll continue to monitor.
--- NOTE | 2018-06-09 22:41 | NUR ---
Reassessment of restless legs Px stated that he feels better after an hour of administration of PRN Gabapentin 100 mg PO.
[2018-06-10] VITALS: BP 122/63
[2018-06-10 04:00] VITALS: BP 120/67
--- NOTE | 2018-06-10 04:00 | NUR ---
CIWA deferred CIWA deferred at 0000 and at 0400 due to the px is asleep. To assess if the px is awake per doctor's order. We'll continue to monitor.
[2018-06-10] MEDS: VALACYCLOVIR HCL 500 MG TABLET PO SCH ×3 (06:42→21:36)
--- NOTE | 2018-06-10 07:10 | NUR ---
End of Shift Note During the shift at 2141, px received Desyrel 100 mg PO and Gabapentin 100 mg PO for insomnia and restless legs. They were effective. Px oral intake is 300 ml, voided 1x without BM. At 0630, px is awake on bed in right side lying position. Last CIWA 12. Bed on lowest position, side rails up 2x and call light within reach. We'll continue to monitor. Px endorsed to AM shift nurse.
[2018-06-10 08:00] VITALS: BP 93/60
--- NOTE | 2018-06-10 08:00 | NUR ---
START OF SHIFT Pt is a 32 y/o M admitted on 06/05/18 for medically supervised benzo, ETOH, and meth withdrawal. Pt is placed on 5 day phenobarbital taper that started on 06/06/18 and is tolerating well. Pt has a disheveled appearance, is withdrawn, poor eye contact, low tone voice with a depressive mood. Pt presents and c/o poor sleep, anxiety 8/10, agitation, restlessness, hot flashes, itchiness and crawling sensation on chest, head, and arms, rsetless legs, and sensitivity of the light and sound. Eduated pt on S/S to report, encouraged pt to verbalize feelings about situation. Pt verbalized understanding. Side rails upx2 and padded, bed in the lowest position. Call light is within reach. Safety measures in place. Will continue to monitor.
[2018-06-10] MEDS ORDERED: PHENOBARBITAL 60 MG TABLET PO SCH (09:00)
--- NOTE | 2018-06-10 09:00 | NUR ---
[facility] ASSESSMENT 17 Upon assessment, pt has a disheveled appearance, withdrawn, has poor eye contact, low tone voice with a depressive mood. Pt c/o poor sleep, anxiety 8/10, agitation, restlessness, hot flashes, itchiness and crawling sensation on chest, head, and arms, restless legs, and sensitivity of the light and sound. Scheduled medications given. Refused other prns at this time. Encouraged pt to attend groups for coping skills. Will continue to monitor.
[2018-06-10] MEDS: MULTIVITAMINS,THERAPEUTIC TABLET PO SCH (09:50)
[2018-06-10] MEDS: TRUVADA PO SCH (09:50)
[2018-06-10] MEDS: DULOXETINE 30 MG CAPSULE.DR PO SCH (09:51)
[2018-06-10 12:00] VITALS: BP 130/79
--- NOTE | 2018-06-10 12:00 | NUR ---
[facility] ASSESSMENT 17 Pt complaint of anxiety 8/10, agitation, restlessness, hot flashes, itchiness and crawling sensation on chest, head, and arms, restless legs, and sensitivity of the light and sound. Scheduled medications given. Vistaril prn will be given. Educated pt on and encouraged pt to use non-pharmalogical interventions for comfort and distractions. Will continue to monitor.
[2018-06-10] MEDS: HYDROXYZINE PAMOATE 25 MG CAPSULE PO PRN ×2 (12:11→18:14)
--- NOTE | 2018-06-10 12:11 | NUR ---
PRN Vistaril 25 mg po prn given for c/o anxiety 06/21. Pt is very soft spoken, appears anxious and restless, fidgety, has poor eye contact when speaking. Pt stated, "I don't feel too well." Will monitor and reassess.
--- NOTE | 2018-06-10 13:11 | NUR ---
REASSESSMENT Pt reports Vistaril was somewhat effective in lowering his anxiety, now 7/10. Pt remains quiet, isolative, very soft spoken, and has a depressive moood. Will continue to monitor.
[2018-06-10] MEDS: GABAPENTIN 100 MG CAPSULE PO PRN (14:22)
[2018-06-10] MEDS: CLONIDINE HCL 0.1 MG TABLET PO PRN ×2 (15:36→21:36)
--- NOTE | 2018-06-10 15:36 | NUR ---
PRN Clonidine 0.1 mg po prn given for intense anxiety and sense of panic. Pt is very withdrawn, isolative; when asked how he was doing, pt started to cry. Clonidine given, will monitor and reassess. Addendum: 06/10/18 at 1609 by JOSÉ MIGUEL PIMENTEL RN Pt reports anxiety 07/22
[2018-06-10] MEDS: ARIPIPRAZOLE 2 MG TABLET PO SCH (15:58)
--- NOTE | 2018-06-10 15:58 | NUR ---
PRN Maalox 30 ml po prn given for heartburn and indigestion. Will continue to monitor and reassess.
--- NOTE | 2018-06-10 16:00 | NUR ---
CIWA ASSESSMENT 17 Pt presents emotional amplitude, panic attacks, anxiety, agitation, restlessness, hot flashes, itchiness and crawling sensation on chest, head, and arms, restless legs, and sensitivity of the light and sound. Clonidine and maalox prns given. Educated pt on and encouraged pt to use non-pharmalogical interventions for comfort and distractions/relaxation. Will continue to monitor.
[2018-06-10 16:30] VITALS: BP 110/69
--- NOTE | 2018-06-10 16:58 | NUR ---
REASSESSMENT Pt is sleeping at time of assessment. Respirations even and unlabored. Will continue to monitor.
[2018-06-10] MEDS: ENSURE WITH FIBER 237 ML LIQUID (CHOCOLATE) PO SCH (17:56)
--- NOTE | 2018-06-10 18:14 | NUR ---
PRN Vistaril 25 mg po and Zofran 4 mg SL PRN given for panic attack and nausea. Pt was dry heaving while talking. Pt reported having a panic attack, has facial flushing, and antsy, and avoidant eye contact. Will closely monitor and reassess.
--- NOTE | 2018-06-10 19:14 | NUR ---
REASSESSMENT Pt reports meds have been effective in decreasing the intensity of his anxiety and nausea has ceased. Will continue to monitor.
--- NOTE | 2018-06-10 19:25 | NUR ---
END OF SHIFT Pt has been isolative, withdrawn, highly anxious, have panic attacks, has emotional amplitude and a depressive mood during shift. Pt has not attended groups or activities. Last CIWA 16. Pt has been given vistarilx2, clonidine, maalox, and gabapentin po prns during shift. Pt has completed a 5 day phenobarbital taper and is scheduled to be discharged tomorrow. Pt ate 50/75/0% of meals. Safety measures in place. Will give endorsement to maintenance supervisor 2nd shift nurse.
[2018-06-10 20:00] VITALS: BP 102/54
--- NOTE | 2018-06-10 20:00 | NUR ---
Start of Shift Note Received 32 y/o male alexa, admitted for medically supervised withdrawal from Benzos and ETOH. Px is to be D/C to home tomorrow, 06/11/2018. Px finished his Phenobarbital taper. Px tolerated it. Last reported CIWA 16 by AM shift nurse. During the rounds at 1999, alexa is asleep on bed in right side lying position. Bed on lowest position, side rails up 2x and call light within reach. We'll continue to monitor.
--- NOTE | 2018-06-10 20:00 | NUR ---
CIWA deferred CIWA deferred due to the px is asleep. To assess if the px is awake per doctor's order. We'll continue to monitor.
[2018-06-10] MEDS ORDERED: HYDR-3895 PO (20:57)
[2018-06-10] MEDS ORDERED: TRAZ-214 PO (20:57)
[2018-06-10] MEDS ORDERED: ARIP2TAB3 PO (20:57)
[2018-06-10] MEDS ORDERED: CLON0.1T14 PO (20:57)
[2018-06-10] MEDS ORDERED: GABA-532 PO (20:57)
--- NOTE | 2018-06-10 21:00 | NUR ---
CIWA 11 Px just woke up. He appears drowsy and depressed. Px stated that his anxiety is 8/10 and bit nauseated. Bilateral hand tremors noted. complains for knee pain /10. No H/A nor hallucinations. We'll continue to monitor.
[2018-06-10] MEDS: IBUPROFEN 600 MG TABLET PO PRN (21:35)
[2018-06-10] MEDS: TRAZODONE 100 MG TABLET PO PRN (21:35)
--- NOTE | 2018-06-10 21:35 | NUR ---
PRN medications Px received Clonidine 0.1 mg PO for anxiety, Motrin 600 mg PO for knee pain of 6/10 and Trazodone 100 mg PO for insomnia. To recheck after an hour.
--- NOTE | 2018-06-10 22:35 | NUR ---
Reassessment of pain and anxiety Px stated that his knee pain improved but his anxiety remains. We'll continue to monitor.
[2018-06-11] VITALS: BP 104/59
--- NOTE | 2018-06-11 | NUR ---
CIWA deferred CIWA deferred due to the px is asleep. To assess if the px is awake per doctor's order. We'll continue to monitor.
[2018-06-11 04:00] VITALS: BP 99/59
--- NOTE | 2018-06-11 04:00 | NUR ---
CIWA deferred CIWA deferred due to the px is asleep. To assess if the px is awake per doctor's order. We'll continue to monitor.
[2018-06-11] MEDS: VALACYCLOVIR HCL 500 MG TABLET PO SCH (06:38)
--- NOTE | 2018-06-11 07:00 | NUR ---
End of Shift Note Px is to be D/C today, 06/11/2018. During the shift at 2135, he received Trazodone 100 mg PO for insomnia, Motrin 600 mg PO for knee pain, and Clonidine 0.1 mg PO for anxiety. Trazodone and Motrin were effective. Px oral intake is 500 ml, voided 1x without BM. Px slept for 10 hours. At 0630, px is awake on bed in right side lying position. Last CIWA 11. Bed on lowest position, side rails up 2x and call light within reach. We'll continue to monitor. Px endorsed to AM shift nurse.
--- NOTE | 2018-06-11 07:50 | NUR ---
START OF SHIFT Pt is a 32 y/o M admitted on 06/05/18 for medically supervised benzo, ETOH, and meth withdrawal. Pt is placed on 5 day phenobarbital taper that started on 06/06/18 and completed yesterday. Pt is medically cleared to be discharged today. Pt has a disheveled appearance, is withdrawn and isolative, has poor eye contact, with a depressive mood. Pt reports having anxiety, agitation, restlessness, and tremors are felt. Side rails upx2 and padded, bed in the lowest position. Call light is within reach. Safety measures in place. Will continue to monitor.
--- NOTE | 2018-06-11 08:00 | NUR ---
CIWA ASSESSMENT Pt has a disheveled appearance, is withdrawn and isolative, has poor eye contact, and has a depressive mood. Pt presents anxiety, agitation, restlessness, and tremors are felt. Vistaril and gabapentin prn will be given.
[2018-06-11 08:14] VITALS: BP 115/73
[2018-06-11] MEDS: ARIPIPRAZOLE 2 MG TABLET PO SCH (08:41)
[2018-06-11] MEDS: GABAPENTIN 100 MG CAPSULE PO PRN (08:41)
[2018-06-11] MEDS: DULOXETINE 30 MG CAPSULE.DR PO SCH (08:41)
[2018-06-11] MEDS: TRUVADA PO SCH (08:41)
[2018-06-11] MEDS: MULTIVITAMINS,THERAPEUTIC TABLET PO SCH (08:41)
[2018-06-11] MEDS: HYDROXYZINE PAMOATE 25 MG CAPSULE PO PRN (08:41)
--- NOTE | 2018-06-11 08:41 | NUR ---
PRN Vistaril 25 mg po, gabapentin 100 mg po PRNs given for anxiety and nerve pain. Will monitor and reassess.
[2018-06-11] MEDS: ENSURE WITH FIBER 237 ML LIQUID (CHOCOLATE) PO SCH (08:51)
--- NOTE | 2018-06-11 09:41 | NUR ---
REASSESSMENT Pt states med has decreased the intensity of his anxiety and is ready to be discharged. Will continue to monitor until discharge.
--- NOTE | 2018-06-11 09:48 | NUR ---
DISCHARGE NOTE Pt is in stable condition, VS are wnl, A/Ox4, respirations even and unlabored. Pt has been given discharge instructions and pt verbalized understanding. Last CIWA score is 7 @0800. Pt stated he is ready to be discharged. Pt has left the building at 0948 with all belongings, prescriptions, and discharge paperwork.
== END 2018-06-11 09:48 | disposition home or self-care (01) | DRG 895 ==
LOC: SRC 06-05 18:36
PROVIDERS: ADMIT Family Medicine Addiction Medicine; ATTEND Family Medicine Addiction Medicine
PROC: HZ2ZZZZ Detoxification Services for Substance Abuse Treatment (ICD-10-PCS; principal; 2018-06-05)
PROC: HZ31ZZZ Individual Counseling for Substance Abuse Treatment, Behavioral (ICD-10-PCS; 2018-06-06)
PROC: HZ41ZZZ Group Counseling for Substance Abuse Treatment, Behavioral (ICD-10-PCS; 2018-06-09)
DX: F13.239 Sedative, hypnotic or anxiolytic dependence with withdrawal, unspecified (principal); F90.9 Attention-deficit hyperactivity disorder, unspecified type; F41.1 Generalized anxiety disorder; F17.210 Nicotine dependence, cigarettes, uncomplicated; Z81.3 Family history of other psychoactive substance abuse and dependence; E87.6 Hypokalemia; Z98.84 Bariatric surgery status; F41.0 Panic disorder [episodic paroxysmal anxiety]; F32.9 Major depressive disorder, single episode, unspecified
CPT/HCPCS: 36415; 70030-TC; 80307; 80324; 80346; 83690; 83735; 84443; 85025; 86580; 86592; 86705; 86803; 87340; 87806; A4663; G0480; J8499; Q0162